=== PATIENT | male | born 1975 | race American Indian/Alaskan Native ===

== ENCOUNTER 2019-06-11 00:56 | Emergency (ER) | payer SELFPAY ==
[2019-06-11 01:13] VITALS: BP 129/86
== END 2019-06-11 02:31 | disposition left against medical advice (07) ==
LOC: ED 00:56
DX: E16.2 Hypoglycemia, unspecified (principal); Z53.21 Procedure and treatment not carried out due to patient leaving prior to being seen by health care provider
CPT/HCPCS: 82962